=== PATIENT | male | born 2000 | race Caucasian/White ===

== ENCOUNTER 2024-06-11 17:18 | Emergency (ER) | payer SELFPAY ==
[2024-06-11 17:24] VITALS: PULSE 117; RESP 20; TEMP 98.2; BMI 44.1
[2024-06-11 18:15] VITALS: BP 142/100
== END 2024-06-11 18:28 | disposition home or self-care (01) ==
LOC: JERFT 17:18 → JER 17:18 → JERFT 18:28
DX: I10 Essential (primary) hypertension (principal); R41.0 Disorientation, unspecified
CPT/HCPCS: 99282-25